=== PATIENT | female | born 1985 | race African-American/Black ===

== ENCOUNTER 2016-08-22 13:02 | Emergency (ER) | payer OTHER, MEDICAID ==
[2016-08-22] MEDS ORDERED: ACETAMINOPHEN 325 MG TABLET PO ONE (13:11)
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
[2016-08-22 16:18] VITALS: BP 143/83
== END 2016-08-22 16:19 | disposition home or self-care (01) ==
LOC: ER 13:02
DX: M54.5 Low back pain (principal); V43.52XA Car driver injured in collision with other type car in traffic accident, initial encounter; I10 Essential (primary) hypertension
CPT/HCPCS: 99283